=== PATIENT | male | born 1945 | race Caucasian/White ===

== ENCOUNTER 2021-03-30 12:23 | Emergency (ER) | payer MEDICARE, BC ==
--- NOTE | 2021-03-30 12:54 | ED Physician Documentation ---
PD HPI CHEST PAIN - Stated complaint Stated Complaint: CHEST PX - Chief complaint Chief Complaint: Cardiac - History obtained from History obtained from: Patient - History of Present Illness Timing - onset: Today Timing - onset during: Rest Timing - duration: Hours Quality: Pressure Radiation: Jaw Improved by: ASA Recently seen: Not recently seen - Additional information Additional information: This is a 75-year-old man who is visiting [facility] for a wedding and says he was around a lot of unvaccinated people. The wedding was 2 days ago and then this morning around 10 AM he was sitting there and just got this sudden feeling like he got hit in the left upper chest a "pressure". Pain was a 3 out of 10 he took a full baby aspirin is now down to 1-2 out of 10 but he got concerned and decided he should have it evaluated when it started climbing up into the neck a little bit of a "numbness". He is never had pain like this before. Denies shortness of breath or diaphoresis. No history of coughing congestion or dizziness. Has not had a fever. Denies any history of DVT. He is not diabetic. Review of Systems Constitutional: denies: Fever Eyes: denies: Loss of vision Ears: denies: Ear pain, Reviewed and negative Throat: denies: Sore throat Cardiac: reports: Chest pain / pressure. denies: Pedal edema Respiratory: denies: Dyspnea, Cough GI: denies: Nausea, Vomiting : denies: Dysuria, Frequency Musculoskeletal: denies: Neck pain, Back pain Neurologic: denies: Syncope PD PAST MEDICAL HISTORY - Present Medications Home Medications: Ambulatory Orders Medication Instructions Recorded Confirmed Aspirin EC [Ecotrin] 325 mg PO ONCE 03/30/21 03/30/21 Tamsulosin HCl [Flomax] 0.4 mg PO DAILY 03/30/21 03/30/21 - Allergies Allergies/Adverse Reactions: Allergies Allergy/AdvReac Type Severity Reaction Status Date / Time No Known Drug Allergies Allergy Verified 03/30/21 12:33 PD ED PE NORMAL - Vitals Vital signs reviewed: Yes - General General: Alert and oriented X 3, No acute distress, Well developed/nourished - HEENT HEENT: Atraumatic, PERRL, EOMI - Neck Neck: Supple, no meningeal sign, No adenopathy, No JVD - Cardiac Cardiac: RRR, No murmur - Respiratory Respiratory: No respiratory distress, Clear bilaterally - Abdomen Abdomen: Normal bowel sounds, Soft, Non tender, Non distended - Derm Derm: Normal color, Warm and dry, No rash - Extremities Extremities: No edema - Neuro Neuro: Alert and oriented X 3, 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, No motor deficit, No sensory deficit, Normal speech - Psych Psych: Normal mood Results - Vitals Vitals: Vital Signs - 24 hr 03/30/21 03/30/21 03/30/21 12:31 12:35 13:52 Temperature 36.3 C L Heart Rate 79 67 76 Respiratory 16 18 15 Rate Blood Pressure 146/81 H 147/93 H 130/80 O2 Saturation 98 96 97 03/30/21 03/30/21 03/30/21 14:20 14:30 15:00 Temperature Heart Rate 70 57 L 70 Respiratory 14 16 16 Rate Blood Pressure 136/78 H 137/77 H 133/77 H O2 Saturation 97 97 98 Oxygen O2 Source Room air - EKG (time done) 1225 Rhythm: NSR Ischemia: Non specific changes (V1 and V2) - Labs Labs: Laboratory Tests 03/30/21 03/30/21 03/30/21 12:35 12:47 12:47 WBC 8.1 RBC 5.28 Hgb 15.8 Hct 47.7 MCV 90.3 MCH 29.9 MCHC 33.1 RDW 13.3 Plt Count 237 MPV 10.0 Neut # (Auto) 5.0 Lymph # (Auto) 2.3 [place] # (Auto) 0.6 Eos # (Auto) 0.1 Baso # (Auto) 0.0 Absolute Nucleated RBC 0.00 Nucleated RBC % 0.0 Sodium 138 Potassium 4.0 Chloride 103 Carbon Dioxide 27 Anion Gap 8.0 BUN 20 Creatinine 1.0 Estimated GFR (MDRD) 73 L Glucose 109 H Calcium 9.4 Total Bilirubin 1.0 AST 16 ALT 20 Alkaline Phosphatase 61 Troponin I High Sens 4.3 Total Protein 6.7 Albumin 4.0 Globulin 2.7 Albumin/Globulin Ratio 1.5 Lipase 28 03/30/21 15:09 WBC RBC Hgb Hct MCV MCH MCHC RDW Plt Count MPV Neut # (Auto) Lymph # (Auto) [place] # (Auto) Eos # (Auto) Baso # (Auto) Absolute Nucleated RBC Nucleated RBC % Sodium Potassium Chloride Carbon Dioxide Anion Gap BUN Creatinine Estimated GFR (MDRD) Glucose Calcium Total Bilirubin AST ALT Alkaline Phosphatase Troponin I High Sens 3.9 Total Protein Albumin Globulin Albumin/Globulin Ratio Lipase - Rads (name of study) CXR Radiology: See rad report (Neg acute) PD MEDICAL DECISION MAKING - ED course Complexity details: re-evaluated patient, d/w patient ED course: Patient's pain was resolved here in the emergency department after taking the aspirin. Initial troponin was negative repeat is pending at this time and plan for discharge home with outpatient follow-up. 1531: The 4-hour troponin is negative. Patient is instructed to take 2 baby aspirin's daily and follow-up with a primary care provider Departure - Departure Disposition: Home, Self Care Clinical Impression: Atypical chest pain Condition: Stable Instructions: ED Chest Pain Atypical Unkn Cause Follow-Up: doctor, your [Other] Comments: Take 2 baby aspirin daily. Follow-up with your primary care provider particularly if you have any further episodes of pain. You should return for reevaluation if you have pain that lasts longer than 20 minutes and particularly if it is associated with shortness of breath, radiation into the arms or neck, you are dizzy or pass out.
[2021-03-30 12:59] LABS: BASOPHILS % (AUTO) 0.2 %; EOSINOPHILS # (AUTO) 0.1 10^3/uL (0.0-0.7); EOSINOPHILS % (AUTO) 1.5 %; HCT - HEMATOCRIT 47.7 % (42.0-52.0); HGB - HEMOGLOBIN 15.8 g/dL (14.0-18.0); LYMPHOCYTES # (AUTO) 2.3 10^3/uL (1.5-3.5); LYMPHOCYTES % (AUTO) 28.5 %; MEAN CORPUSCULAR HEMOGLOBIN 29.9 pg (27.0-31.0); MEAN CORPUSCULAR HGB CONC 33.1 g/dL (32.0-36.0); MEAN CORPUSCULAR VOLUME 90.3 fL (80.0-94.0); MONOCYTES # (AUTO) 0.6 10^3/uL (0.0-1.0); MONOCYTES % (AUTO) 7.6 %; NEUTROPHILS % (AUTO) 61.7 %; PLT - PLATELET COUNT 237 10^3/uL (130-450); RED BLOOD COUNT 5.28 10^6/uL (4.70-6.10); RED CELL DISTRIBUTION WIDTH 13.3 % (12.0-15.0); WHITE BLOOD COUNT 8.1 x10^3/uL (4.8-10.8)
[2021-03-30 13:12] LABS: ALBUMIN/GLOBULIN RATIO 1.5 (1.0-2.2); CALCIUM 9.4 mg/dL (8.5-10.3); TOTAL PROTEIN 6.7 g/dL (6.7-8.2)
--- NOTE | 2021-03-30 13:26 | XRAY Report ---
PROCEDURE: Chest 1 View X-Ray INDICATIONS: Chest pain TECHNIQUE: One view of the chest was acquired. COMPARISON: None. FINDINGS: Surgical changes and devices: None. Lungs and pleura: No pleural effusions or pneumothorax. Lungs are clear. Mediastinum: Mediastinal contours appear normal. Heart size is normal. Bones and chest wall: No suspicious bony lesions. Overlying soft tissues appear unremarkable. IMPRESSION: No acute cardiopulmonary abnormality. Reviewed by: Omar Howard MD on 03/30/2021 12:24 PM DOUG Approved by: Omar Howard MD on 03/30/2021 12:24 PM DOUG Station ID: [id number]
[2021-03-30 15:05] VITALS: BP 133/77
== END 2021-03-30 15:52 | disposition home or self-care (01) ==
LOC: ED 12:23
DX: R07.89 Other chest pain (principal)
CPT/HCPCS: 36415; 80053; 83690; 84484; 85025; 93005; 99284